=== PATIENT | male | born 1955 | race Caucasian/White ===

== ENCOUNTER 2016-09-25 09:34 | Inpatient (IN) | payer BC ==
[2016-09-22 10:27] LABS: HEMATOCRIT 42.9 % (40.0-51.0)
[2016-09-22 10:41] LABS: CALCIUM, SERUM 8.8 MG/DL (8.5-10.4); CHLORIDE, SERUM 102 MMOL/L (96-112); CO2 (CARBON DIOXIDE) 32 MMOL/L (24-34); CREATININE 0.91 MG/DL (0.70-1.30); GFR AFRICAN AMERICAN 105 ML/MIN (>=60); GFR NON AFRICAN AMERICAN 91 ML/MIN (>=60); GLUCOSE, SERUM 79 MG/DL (60-99); POTASSIUM, SERUM 3.4 MMOL/L (3.5-5.3); SODIUM, SERUM 142 MMOL/L (135-148)
[2016-09-22 10:42] LABS: BUN (BLOOD UREA NITROGEN) 12 MG/DL (6-23)
--- NOTE | ~2016-09-25 | PREOPHP ---
PreOp History and Physical [address] [address] NAME: KANCHAN BAUGH : 55 STATUS : ADM IN MERGED WITH [facility]#: [id number] AGE: 61 ADM/REG DATE : 09/25/16 MR#: [id number] REPORT SERV DATE: 09/25/16 DICTATED BY: CHRISTIANO MCPHERSON DATE: 09/25/16 REPORT STATUS : Draft TRANSCRIBED BY: MODL DATE: 09/25/16 CHIEF COMPLAINT: Neck pain and bilateral upper extremity pain. HISTORY OF PRESENT ILLNESS: The patient is a 61-year-old with intractable neck and arm pain, failed conservative treatment. After discussion of risks and benefits, the patient elected to proceed with surgical intervention. REVIEW OF SYSTEMS: He denies chest pain, shortness of breath, and bowel or bladder changes. ALLERGIES: NONE. HOME MEDICATIONS: Hydrocodone and Nexium. PAST MEDICAL HISTORY: Gastric reflux. FAMILY HISTORY: Noncontributory. PHYSICAL EXAMINATION: VITAL SIGNS: Height 6 feet 4 inches, weight 140, BMI 19. GENERAL: Patient is healthy appearing, in no acute distress. PSYCH: Alert and oriented x3. Normal mood and affect. Gait within normal limits. VASCULAR: No extremity swelling. SPINE: Decreased cervical motion. HEART: Regular rate and rhythm. LUNGS: Clear to auscultation. ABDOMEN: Soft, nontender, nondistended with good bowel sounds. BREASTS AND RECTAL: Both deferred. NEUROLOGIC: Strength in the upper extremities remains intact. No focal deficits. IMAGING: I have reviewed the CT and MRI scan. The patient does have multilevel stenosis, C3 through C7 with a pseudoarthrosis, C6-C7. ASSESSMENT: Pseudoarthrosis as well as disk disease and stenosis. PLAN: The patient presents today for surgical intervention. Consent was obtained. All questions were answered. The patient is ready to proceed with surgery. LAUREN/JAMES Christiano Mcpherson, / [id number] PreOp History and Physical [address] [address] NAME: KANCHAN BAUGH : 55 STATUS : ADM IN PAT#: [id number] AGE: 61 ADM/REG DATE : 09/25/16 MR#: [id number] REPORT SERV DATE: 09/25/16 DICTATED BY: CHRISTIANO MCPHERSON DATE: 09/25/16 REPORT STATUS : Draft TRANSCRIBED BY: JAMES DATE: 09/25/16 CC: DO Nick Orta M.D.
--- NOTE | ~2016-09-25 | OP ---
Record Of Operation [facility] [address] [place]. [address] NAME: KANCHAN BAUGH : 55 STATUS : ADM IN PAT#: [id number] AGE: 61 ADM/REG DATE : 09/25/16 MR#: [id number] REPORT SERV DATE: 09/25/16 DICTATED BY: CHRISTIANO MCPHERSON DATE: 09/25/16 REPORT STATUS : Draft TRANSCRIBED BY: MODL DATE: 09/25/16 DATE OF PROCEDURE: 09/25/2016 PREOPERATIVE DIAGNOSES: C6-C7 pseudoarthrosis from prior outside surgery, C3-C7 stenosis, cervical radiculopathy. POSTOPERATIVE DIAGNOSES: C6-C7 pseudoarthrosis from prior outside surgery, C3-C7 stenosis, cervical radiculopathy. INDICATIONS: The patient is a pleasant 61-year-old, who has had a previous surgery of C3-C7 anteriorly. Imaging studies revealed the presence of a pseudoarthrosis at C6-C7 with severe disk disease as well as stenosis of C3 through C7 in the foramen. After discussion of risks and benefits, they elected to proceed with surgical intervention. He denied chest pain, shortness of breath, and bowel or bladder changes. PROCEDURE: C3-C7 posterior laminectomy and bilateral foraminotomies with decompression of this C3 through C7 nerve roots, C3 through C7 posterolateral fusion bilaterally, C3 through C7 posterior segmental spinal instrumentation using Medtronic pedicle screws and lateral mass screws, use of local morcellized autograft, use of allograft bone matrix, neuromonitoring and intraoperative O-arm CT scan with computer navigation. SURGEON: Christiano Mcpherson DO. ANESTHESIA: General. ESTIMATED BLOOD LOSS: 100 mL. COMPLICATIONS: None. The patient is a 61-year-old with intractable neck and arm pain, failed conservative treatment and after discussion of risks and benefits, elected to proceed. PROCEDURE IN DETAIL: I identified the patient in the holding area. Consent was obtained and went to the operating room. Underwent general anesthesia with endotracheal intubation. Turned to prone position, prepped and draped in the usual sterile fashion. Operative safety pause was performed, then we proceeded with surgery. A midline longitudinal incision was made over C3 to C7 taken down through the fascial layer. Paraspinous muscles elevated to the tips of the lateral masses. Self-retaining retractors were placed. The O-arm registration frame was placed on spinous process. O-arm was brought in for intraoperative CT scan. Computer registration materials were verified and then lateral mass and pedicle screws from [employer] were placed C3 through C7 bilaterally. O-arm was brought back in to verify good placement of all instrumentation. Next a bur was used to create a trough in the lamina of C3-C7. Final cut through was made with a ese bur. Kerrison removed from the underlying ligamentum flavum. Lamina was Record Of Operation [address] [address] NAME: KANCHAN BAUGH : 55 STATUS : ADM IN PAT#: [id number] AGE: 61 ADM/REG DATE : 09/25/16 MR#: [id number] REPORT SERV DATE: 09/25/16 DICTATED BY: CHRISTIANO MCPHERSON DATE: 09/25/16 REPORT STATUS : Draft TRANSCRIBED BY: JAMES DATE: 09/25/16 removed en bloc and used for morcellized autograft. Kerrison was used to perform foraminotomies C3 through C7 decompressing the C3-C7 nerve roots bilaterally. Rods were cut and contoured to appropriate shape and length, placed over the screws C3-C7 bilaterally. Setscrews were placed and final tightened. A high-speed decorticating isabelle was used to decorticate the remaining bony surfaces C3 through C7. Irrigation performed. Hemostasis achieved. Local morcellized autograft and allograft bone matrix were placed over the decorticated surfaces of C3 through C7 bilaterally. A subfascial drain was placed. A gram of vancomycin powder sprinkled over the surgical wound. Layered closure performed. Sterile dressings applied. The patient was awoken and extubated and taken to the recovery room in stable condition. OPERATIVE FINDINGS: C3-7 disk disease and stenosis. No sustained neuromonitoring alerts. LAUREN/JAMES Christiano Mcpherson DO / [id number] CC: Christiano Mcpherson DO
[~2016-09-25 09:34] MED LIST: ASAB PO; ENDOCET1 TAB PO; NEXIUM40 PO; NORCO1 TAB PO
[2016-09-27] MEDS ORDERED: METHOC500B PO (11:23)
[2016-09-27] MEDS ORDERED: PCET PO (11:23)
== END 2016-09-27 14:06 | disposition home or self-care (01) | DRG 473 ==
LOC: SDC/OF 09:34 → PACU 16:02 → 3JRC 17:39
PROVIDERS: Orthopaedic Surgery
PROC: 0RG2071 Fusion of 2 or more Cervical Vertebral Joints with Autologous Tissue Substitute, Posterior Approach, Posterior Column, Open Approach (ICD-10-PCS; principal; 2016-09-25 11:15)
PROC: 4A11X4G Monitoring of Peripheral Nervous Electrical Activity, Intraoperative, External Approach (ICD-10-PCS; 2016-09-25 11:15)
DX: M50.11 Cervical disc disorder with radiculopathy, high cervical region (principal); F17.210 Nicotine dependence, cigarettes, uncomplicated; Z79.82 Long term (current) use of aspirin
CPT/HCPCS: 80048; 80051; 82962; 85014; 85018; 87641; 88304; 88311; 93005; 97161-GP; A9270-GY; C1713; J0690; J1644; J2250; J2270; J2405; J2710; J3010; J3370